=== PATIENT | male | born 1995 | race Caucasian/White ===

== ENCOUNTER → 2020-01-29 09:04 | Outpatient (CLI) | payer BC, SELFPAY ==
--- NOTE | ~2020-01-29 | XR_ITS ---
[XR ribs RT 2V w CXR 2V ] INDICATION: Right chest pain TECHNIQUE: Frontal projection of the upper right ribs, frontal projection of the lower right ribs, ob lique projection of all the right ribs, frontal inspiratory chest x-ray for interpretation. FINDINGS: There are no displaced rib fractures identified. There are no soft tissue abnormality see n. The lungs are clear. IMPRESSION: 1:No displaced rib fractures. Reviewed, dictated and finalized at location B. [employer] DIRECTOR/[employer]ORNING [employer]OW [employer]
== END ==
PROVIDERS: PCP Family Medicine; Visit Provider Family Medicine
DX: R06.02 Shortness of breath (principal); R07.89 Other chest pain
CPT/HCPCS: 71046; 71100